=== PATIENT | male | born 1950 | race Caucasian/White ===

== ENCOUNTER 2022-07-25 13:40 | Inpatient (IN) | payer BC ==
[~2022-07-25] VITALS: Ht 177.8 cm; Wt 103.0 kg
[2022-07-25 14:30] LABS: BASOPHILS % (AUTO) 0.6 % (0-1); EOSINOPHILS # (AUTO) 0.1 X10'3 (0-0.9); EOSINOPHILS % (AUTO) 1.8 % (0-6); HEMATOCRIT 47.1 % (42.0-52.0); HEMOGLOBIN 16.5 g/dl (14.0-17.9); LYMPHOCYTES # (AUTO) 1.1 X10'3 (1.1-4.8); LYMPHOCYTES % (AUTO) 15.6 % (21-51); MEAN CORPUSCULAR HEMOGLOBIN 32.1 PG (27.0-31.0); MEAN CORPUSCULAR HGB CONC 35.1 g/dL (33.0-36.5); MEAN CORPUSCULAR VOLUME 91.5 FL (78-98); MEAN PLATELET VOLUME 7.1 FL (7.4-10.4); MONOCYTES # (AUTO) 0.5 X10'3 (0-0.9); MONOCYTES % (AUTO) 7.5 % (2-12); NEUTROPHILS # (AUTO) 5.1 X10'3 (1.8-7.7); NEUTROPHILS % (AUTO) 74.5 % (42-75); PLATELET COUNT 245 X10'3 (140-440); RED BLOOD COUNT 5.14 X10'6 (4.70-6.10); RED CELL DISTRIBUTION WIDTH 13.3 % (11.5-14.5); WHITE BLOOD COUNT 6.9 X10'3 (4.5-11.0)
[2022-07-25 14:45] LABS: ALANINE AMINOTRANSFERASE 28 U/L (12-78); ALBUMIN 4.4 G/DL (3.4-5.0); ALBUMIN/GLOBULIN RATIO 1.2 (1.1-1.5); ALKALINE PHOSPHATASE 90 IU/L (46-116); ANION GAP 10 (8-16); ASPARTATE AMINO TRANSFERASE 21 U/L (10-37); BILIRUBIN,TOTAL 0.6 MG/DL (0.1-1.0); BLOOD UREA NITROGEN 27 MG/DL (7-18); BUN/CREATININE RATIO 23.5 (5.4-32.0); CALCIUM 9.5 MG/DL (8.5-10.1); CHLORIDE 104 MMOL/L (99-107); CREATININE 1.15 MG/DL (0.60-1.10); GLUCOSE 126 MG/DL (70-104); POTASSIUM 4.6 MMOL/L (3.5-5.1); SODIUM 140 MMOL/L (135-145); TOTAL CARBON DIOXIDE 26.3 MMOL/L (24-32); eGFR 63 ML/MIN
[2022-07-25] MEDS ORDERED: aspirin 81mg tab.chew PO ONE (15:35)
[2022-07-25] MEDS ORDERED: metoprolol tartrate 25mg tablet PO ONE (15:35)
[2022-07-25] MEDS: nitroGLYCERIN 0.4mg SUBLingual tab SL PRN ×2 (15:45→15:46)
[2022-07-25] MEDS ORDERED: ZOLP12.543 PO (16:03)
[2022-07-25] MEDS ORDERED: ondansetron/PF 4mg/2ml inj IV PRN (16:20)
[2022-07-25] MEDS ORDERED: mag hydrox/Alum hydrox/simeth 30ml oral suspension PO PRN (16:20)
[2022-07-25] MEDS ORDERED: acetaminophen 325mg tablet PO PRN ×2 (16:20)
[2022-07-25] MEDS ORDERED: nitroGLYCERIN 0.4mg SUBLingual tab SL PRN (16:20)
[2022-07-25] MEDS ORDERED: magnesium hydroxide 30ml (MOM) UD suspension PO PRN (16:20)
[2022-07-25] MEDS ORDERED: morphine 2 MG/ML inj. syringe IV PRN ×2 (16:20)
[2022-07-25] MEDS ORDERED: MELO-100 PO (16:25)
[2022-07-25] MEDS ORDERED: ATOR40TA PO (16:25)
[2022-07-25] MEDS ORDERED: CITA20TA28 PO (16:25)
[2022-07-25] MEDS ORDERED: LORA-269 PO (16:25)
[2022-07-25] MEDS ORDERED: SYN0.088T PO (16:25)
[2022-07-25] MEDS ORDERED: HYDR-3972 PO (16:25)
[2022-07-25] MEDS ORDERED: ASPI-920 PO (16:25)
[2022-07-25 16:39] LABS: D-DIMER 0.54 MG/L FEU (0-0.50)
[2022-07-25 16:44] LABS: HEMOGLOBIN A1C 5.8 % (4.5-6.2)
--- NOTE | 2022-07-25 17:30 | NUR ---
Patient states that he wants to take his own medications. I printed out the policy and procedure for the patient on patients taking own medication and gave it to patient to review. Patient was appreciated, but stated that he would only take certain medications off of his home medication list from our pharmacy.
[2022-07-25] MEDS: docusate sod 100mg capsule PO SCH (20:00)
[2022-07-26 07:11] LABS: BASOPHILS % (AUTO) 0.4 % (0-1); EOSINOPHILS # (AUTO) 0.3 X10'3 (0-0.9); EOSINOPHILS % (AUTO) 3.8 % (0-6); HEMATOCRIT 48.8 % (42.0-52.0); HEMOGLOBIN 16.4 g/dl (14.0-17.9); LYMPHOCYTES # (AUTO) 1.8 X10'3 (1.1-4.8); LYMPHOCYTES % (AUTO) 26.1 % (21-51); MEAN CORPUSCULAR HEMOGLOBIN 31.5 PG (27.0-31.0); MEAN CORPUSCULAR HGB CONC 33.7 g/dL (33.0-36.5); MEAN CORPUSCULAR VOLUME 93.7 FL (78-98); MEAN PLATELET VOLUME 7.5 FL (7.4-10.4); MONOCYTES # (AUTO) 0.7 X10'3 (0-0.9); MONOCYTES % (AUTO) 10.1 % (2-12); NEUTROPHILS % (AUTO) 59.6 % (42-75); PLATELET COUNT 213 X10'3 (140-440); RED BLOOD COUNT 5.21 X10'6 (4.70-6.10); RED CELL DISTRIBUTION WIDTH 13.6 % (11.5-14.5); WHITE BLOOD COUNT 6.8 X10'3 (4.5-11.0)
[2022-07-26 07:26] LABS: ANION GAP 8 (8-16); BLOOD UREA NITROGEN 23 MG/DL (7-18); BUN/CREATININE RATIO 23.2 (5.4-32.0); CALCIUM 9.4 MG/DL (8.5-10.1); CHLORIDE 105 MMOL/L (99-107); CHOL/HDL RATIO 3.1 (0.00-4.99); CHOLESTEROL 141 MG/DL (0-200); CREATININE 0.99 MG/DL (0.60-1.10); GLUCOSE 107 MG/DL (70-104); HDL CHOLESTEROL 46 MG/DL (35-60); LDL CHOLESTEROL 83 MG/DL (50-100); SODIUM 142 MMOL/L (135-145); TOTAL CARBON DIOXIDE 28.7 MMOL/L (24-32); TRIGLYCERIDES 90 MG/DL (20-135); eGFR 75 ML/MIN
[2022-07-26 07:32] LABS: POTASSIUM 4.5 MMOL/L (3.5-5.1)
[2022-07-26] MEDS: docusate sod 100mg capsule PO SCH ×2 (08:00→19:26)
[2022-07-26] MEDS ORDERED: metoprolol tartrate 1mg/ml inj IV PRN (08:00)
[2022-07-26] MEDS ORDERED: nitroGLYCERIN 0.4mg SUBLingual tab SL PRN ×2 (08:00→21:00)
[2022-07-26] MEDS ORDERED: regadenoson 0.4mg/5ml syringe IV PRN (08:00)
[2022-07-26] MEDS ORDERED: aspirin 81mg, enteric-coated 1 TAB TABLET.DR PO SCH (08:00)
[2022-07-26] MEDS ORDERED: aminophylline 500mg/20ml vial IV PRN (08:00)
--- NOTE | 2022-07-26 08:22 | NUR ---
PT REFUSED TO KEEP VITAL SIGN EQUIPMENT ON, KEEPS TAKING THE EQUIPMENT OFF. WILL ATTEMPT AGAIN LATER.
[2022-07-26] MEDS ORDERED: heparin 25,000 UNIT/250ml bag 250 ML IV PRN (10:20)
[2022-07-26] MEDS ORDERED: heparin 10,000 units/1 ML INJ IV PRN (10:20)
[2022-07-26] MEDS ORDERED: heparin 10,000 units/1 ML INJ IV ONE ×2 (10:20→10:25)
--- NOTE | 2022-07-26 10:20 | NUR ---
PT TROPONINS WERE DRAWN, AND THEY CAME BACK CRITICALS. DR APARICIO WAS NOTIFIED OF THE LAB FINDINGS, AND DR APARICIO ORDERED THAT THE STRESS TEST BE CANCELLED. NUCLEAR MEDICINE WAS NOTIFIED OF THE ORDERS AND THE TEST WAS CANCELLED. PT WAS STARTED ON A HEPARIN DRIP ORDERED BY DR APARICIO.
[2022-07-26 10:47] LABS: BASOPHILS % (AUTO) 0.3 % (0-1); EOSINOPHILS # (AUTO) 0.1 X10'3 (0-0.9); EOSINOPHILS % (AUTO) 1.8 % (0-6); HEMATOCRIT 49.7 % (42.0-52.0); HEMOGLOBIN 16.9 g/dl (14.0-17.9); LYMPHOCYTES # (AUTO) 1.2 X10'3 (1.1-4.8); LYMPHOCYTES % (AUTO) 14.9 % (21-51); MEAN CORPUSCULAR HEMOGLOBIN 31.9 PG (27.0-31.0); MEAN CORPUSCULAR VOLUME 93.9 FL (78-98); MEAN PLATELET VOLUME 7.4 FL (7.4-10.4); MONOCYTES # (AUTO) 0.6 X10'3 (0-0.9); MONOCYTES % (AUTO) 7.1 % (2-12); NEUTROPHILS # (AUTO) 6.1 X10'3 (1.8-7.7); NEUTROPHILS % (AUTO) 75.9 % (42-75); PLATELET COUNT 250 X10'3 (140-440); RED CELL DISTRIBUTION WIDTH 13.6 % (11.5-14.5)
[2022-07-26 10:58] LABS: APTT 28 SECONDS (22-32)
--- NOTE | 2022-07-26 13:26 | NUR ---
EARLY LUNCH WAS GIVEN TO THE PT DUE TO HIS UP COMING PROCEDURE, AND HE WAS INSTRUCTED "NOTHING TO EAT" .
--- NOTE | 2022-07-26 14:00 | NUR ---
PT IS ASKING STAFF AND VISITORS TO BRING/BUY HIM FOOD. PT IS RE-EDUCATED THAT HE IS NPO UNTIL AFTER HIS PROCEDURE.
--- NOTE | 2022-07-26 14:07 | NUR ---
VISITORS AT BEDSIDE.
[2022-07-26] MEDS ORDERED: LEVO50TA8 PO (16:01)
[2022-07-26] MEDS ORDERED: nitroGLYCERIN-Tridil 50MG/D5W 250 ML IV ONE (16:35)
[2022-07-26] MEDS ORDERED: fentaNYL/PF 50MCG/1 ML 2ML syringe ONE (16:36)
[2022-07-26] MEDS ORDERED: midazolam 1 mg/ML 2ml injection ONE (16:36)
[2022-07-26] MEDS ORDERED: heparin 1,000unit/ml 10ml vial 10 ML ONE (16:36)
[2022-07-26] MEDS ORDERED: LIDOcaine 1% 30ml preserv. free vial ONE (16:36)
[2022-07-26] MEDS ORDERED: verapamil 2.5 mg/ml inj IV ONE (16:36)
[2022-07-26] MEDS ORDERED: iohexol 350MG/ML 100ml bottle IV ONE ×3 (16:36→18:01)
[2022-07-26] MEDS ORDERED: ticagrelor 90mg tablet ONE (17:52)
[2022-07-26] MEDS ORDERED: HYDROcodone/acetaminophen 10/325mg tab PO PRN (17:55)
[2022-07-26] MEDS ORDERED: tirofiban 5mg in NS 100mL 100 ML IV ONE ×2 (18:11→19:02)
[2022-07-26 19:00] VITALS: BP 135/87
[2022-07-26] MEDS: LORazepam 1 MG tablet PO SCH (19:26)
--- NOTE | 2022-07-26 19:28 | NUR ---
3 ml of air removed from right radial heart cath site
--- NOTE | 2022-07-26 19:45 | NUR ---
released 3 ml more air from right radial heart cath site. Puncture site is clear
[2022-07-26] MEDS ORDERED: ondansetron/PF 4mg/2ml inj IV PRN (20:55)
[2022-07-26] MEDS ORDERED: zolpidem 5mg tablet PO SCH (21:00)
[2022-07-26] MEDS ORDERED: atorvastatin 20mg tablet PO SCH (21:00)
[2022-07-26] MEDS ORDERED: OXAZEpam 15mg capsule PO PRN (21:00)
[2022-07-26] MEDS ORDERED: tirofiban 12.5mg in NS 250mL IV SCH (21:15)
[2022-07-26 22:00] VITALS: BP 109/52
[2022-07-26] MEDS: normal saline 1000ml 1,000 ML IV SCH (22:05)
[2022-07-27 02:00] VITALS: BP 130/80
[2022-07-27] MEDS: normal saline 1000ml 1,000 ML IV SCH (04:25)
--- NOTE | 2022-07-27 06:40 | NUR ---
Problems reprioritized. Patient report given, questions answered & plan of care reviewed with BRANDYN. Addendum: 07/27/22 at 0640 by Vicente Hernandez RN Amended: Links added.
[2022-07-27 07:00] VITALS: BP 125/71
[2022-07-27] MEDS ORDERED: levoTHYROXINE 25mcg tablet PO SCH (07:00)
[2022-07-27 07:05] LABS: BASOPHILS % (AUTO) 0.5 % (0-1); EOSINOPHILS # (AUTO) 0.3 X10'3 (0-0.9); EOSINOPHILS % (AUTO) 3.4 % (0-6); HEMATOCRIT 42.9 % (42.0-52.0); HEMOGLOBIN 14.7 g/dl (14.0-17.9); LYMPHOCYTES # (AUTO) 1.6 X10'3 (1.1-4.8); LYMPHOCYTES % (AUTO) 21.6 % (21-51); MEAN CORPUSCULAR HEMOGLOBIN 31.9 PG (27.0-31.0); MEAN CORPUSCULAR HGB CONC 34.2 g/dL (33.0-36.5); MEAN CORPUSCULAR VOLUME 93.2 FL (78-98); MEAN PLATELET VOLUME 7.3 FL (7.4-10.4); MONOCYTES % (AUTO) 13.7 % (2-12); NEUTROPHILS # (AUTO) 4.6 X10'3 (1.8-7.7); NEUTROPHILS % (AUTO) 60.8 % (42-75); PLATELET COUNT 233 X10'3 (140-440); RED BLOOD COUNT 4.61 X10'6 (4.70-6.10); RED CELL DISTRIBUTION WIDTH 13.4 % (11.5-14.5); WHITE BLOOD COUNT 7.6 X10'3 (4.5-11.0)
[2022-07-27 07:16] LABS: ALBUMIN 3.5 G/DL (3.4-5.0); ANION GAP 6 (8-16); BLOOD UREA NITROGEN 25 MG/DL (7-18); BUN/CREATININE RATIO 19.2 (5.4-32.0); CALCIUM 8.7 MG/DL (8.5-10.1); CHLORIDE 104 MMOL/L (99-107); GLUCOSE 101 MG/DL (70-104); POTASSIUM 3.8 MMOL/L (3.5-5.1); SODIUM 139 MMOL/L (135-145); eGFR 55 ML/MIN
[2022-07-27] MEDS: docusate sod 100mg capsule PO SCH (07:44)
[2022-07-27] MEDS: LORazepam 1 MG tablet PO SCH (07:48)
[2022-07-27] MEDS ORDERED: MELOXICAM 7.5 MG TABLET PO SCH (08:00)
[2022-07-27] MEDS ORDERED: ticagrelor 90mg tablet PO SCH (08:00)
[2022-07-27] MEDS ORDERED: aspirin 81mg, enteric-coated 1 TAB TABLET.DR PO SCH (08:00)
[2022-07-27] MEDS ORDERED: citalopram 20mg tablet PO SCH (08:00)
[2022-07-27] MEDS ORDERED: METO-395 PO (08:09)
[2022-07-27] MEDS ORDERED: ATOR40TA PO (08:10)
--- NOTE | 2022-07-27 08:34 | NUR ---
Patient gathering belongings and demanding to leave AMA. he is aware of the fact that he has discharge orders however says he is not waiting.
--- NOTE | 2022-07-27 08:35 | NUR ---
AMA papers signed. SADDLE STITCH OPERATOR at bedside.
--- NOTE | 2022-07-27 08:52 | NUR ---
Patient refused to wait for medication to be in his possession. Addendum: 07/27/22 at 2452 by Tiffany Shah RN Amended: Links added.
[2022-07-27] MEDS ORDERED: TICA90TA PO (08:54)
--- NOTE | 2022-07-27 09:32 | NUR ---
Patient stable and appropriate for discharge home. IV removed, monitor technician removed. All belongings gathered from room. New RX e-scripted to preferred pharmacy. All discharge instructions and education given and reviewed with patient, all questions answered. Patient very irritated refusing to wait for brillinta to be in possession. Educated him on the importance and next due doses of his medication. He verbalized understanding.
== END 2022-07-27 09:30 | disposition home or self-care (01) | DRG 247 ==
LOC: ER 13:41 → ED HOLD 16:21 → OBSVTOIN 07-26 09:00 → PCU 3S 07-26 18:50
PROVIDERS: ADMIT Internal Medicine; ATTEND Internal Medicine
PROC: 4A023N7 Measurement of Cardiac Sampling and Pressure, Left Heart, Percutaneous Approach (ICD-10-PCS; principal; 2022-07-26)
PROC: 027135Z Dilation of Coronary Artery, Two Arteries with Two Drug-eluting Intraluminal Devices, Percutaneous Approach (ICD-10-PCS; 2022-07-26)
PROC: B2111ZZ Fluoroscopy of Multiple Coronary Arteries using Low Osmolar Contrast (ICD-10-PCS; 2022-07-26)
PROC: 4A033BC Measurement of Arterial Pressure, Coronary, Percutaneous Approach (ICD-10-PCS; 2022-07-26)
DX: I21.4 Non-ST elevation (NSTEMI) myocardial infarction (principal); I25.10 Atherosclerotic heart disease of native coronary artery without angina pectoris; E03.9 Hypothyroidism, unspecified; E78.00 Pure hypercholesterolemia, unspecified; F41.9 Anxiety disorder, unspecified; F32.A Depression, unspecified; M54.9 Dorsalgia, unspecified; R00.1 Bradycardia, unspecified; G89.29 Other chronic pain; G47.33 Obstructive sleep apnea (adult) (pediatric); I10 Essential (primary) hypertension; I25.2 Old myocardial infarction; Z79.02 Long term (current) use of antithrombotics/antiplatelets; Z79.82 Long term (current) use of aspirin; Z79.899 Other long term (current) drug therapy; Z95.5 Presence of coronary angioplasty implant and graft
CPT/HCPCS: 93306; 93458; 93571; 99285; C9600; 36415; 71045; 80048; 80053; 80061; 83036; 83880; 84484; 85025; 85379; 85610; 85730; 93005; 99152; 99153; A4620; A5120; C1725; C1751; C1769; C1874; C1894; G0378; J1644; J2250; J3010; J3246; J3490; J7030; Q9967

== ENCOUNTER 2023-01-25 10:26 | Day surgery (SDC) | payer BC ==
[2023-01-21 15:45] LABS: BASOPHILS % (AUTO) 0.4 % (0-1); EOSINOPHILS # (AUTO) 0.2 X10'3 (0-0.9); EOSINOPHILS % (AUTO) 3.1 % (0-6); LYMPHOCYTES # (AUTO) 1.2 X10'3 (1.1-4.8); LYMPHOCYTES % (AUTO) 17.2 % (21-51); MEAN CORPUSCULAR HGB CONC 33.9 g/dL (33.0-36.5); MEAN CORPUSCULAR VOLUME 94.5 FL (78-98); MONOCYTES # (AUTO) 0.8 X10'3 (0-0.9); MONOCYTES % (AUTO) 10.8 % (2-12); NEUTROPHILS % (AUTO) 68.5 % (42-75); PRE OP HEMATOCRIT 44.7 % (42.0-52.0); PRE OP HEMOGLOBIN 15.2 g/dL (14.0-17.9); PRE OP PLATELET COUNT 345 X10'3 (140-440); RED BLOOD COUNT 4.73 X10'6 (4.70-6.10); RED CELL DISTRIBUTION WIDTH 13.6 % (11.5-14.5)
[2023-01-21 16:12] LABS: ALBUMIN 4.2 G/DL (3.4-5.0); ALBUMIN/GLOBULIN RATIO 0.9 (1.1-1.5); ALKALINE PHOSPHATASE 95 IU/L (46-116); BLOOD UREA NITROGEN 33 MG/DL (7-18); BUN/CREATININE RATIO 32.7 (10.0-20.0); CALCIUM 9.7 MG/DL (8.5-10.1); CHLORIDE 102 MMOL/L (99-107); CREATININE 1.01 MG/DL (0.60-1.10); PRE OP ALT 9 U/L (30-65); PRE OP ANION GAP 7 (8-16); PRE OP AST 27 U/L (10-37); PRE OP BILIRUB, TOTAL 0.6 MG/DL (0.0-1.0); PRE OP GLUCOSE 94 MG/DL (70-104); PRE OP SODIUM 140 MMOL/L (135-145); TOTAL CARBON DIOXIDE 31.2 MMOL/L (24-32); TOTAL PROTEIN 8.7 G/DL (6.4-8.2); eGFR 73 ML/MIN
[~2023-01-25] VITALS: Ht 177.8 cm; Wt 93.7 kg
[2023-01-25] VITALS (8 sets, daily range): BP systolic 110–144; BP diastolic 57–71
[~2023-01-25 10:26] MED LIST: ASPI-920 PO; ATOR20TA66 PO; BACL10TA2 PO; DOCUMENT DATE & TIME OF BETA-BLOCKER PO ONE; HYDR-3972 PO; LEVO50TA8 PO; LORA-269 PO; MELO-102 PO; METO-395 PO; ZOLP10TA; cefazolin 2gm/D5W 100mL 100 ML IV ONE; famotidine 20mg tablet PO ONE; ringers solution, lacted 1,000 ML IV SCH
[2023-01-25] MEDS ORDERED: BUPIVAcaine/PF 2.5 mg/ml (0.25%) 30ml vial ONE (10:59)
[2023-01-25] MEDS ORDERED: BUPIVACAINE liposomal/PF 13.3 MG/ML vial IM ONE (10:59)
[2023-01-25] MEDS ORDERED: LIDOcaine 1% 30ml preserv. free vial ONE (10:59)
[2023-01-25] MEDS ORDERED: fentaNYL/PF 50MCG/1 ML 2ML syringe ONE (11:13)
[2023-01-25] MEDS ORDERED: morphine 2 MG/ML inj. syringe IV PRN (11:20)
[2023-01-25] MEDS ORDERED: HYDROmorphone/PF 0.2 MG/ML SYRINGE IV PRN ×2 (11:20)
[2023-01-25] MEDS ORDERED: ondansetron/PF 4mg/2ml inj IV PRN (11:20)
[2023-01-25] MEDS ORDERED: ringers solution, lacted 1,000 ML IV SCH (11:20)
[2023-01-25] MEDS ORDERED: ondansetron/PF 4mg/2ml inj ONE (13:09)
[2023-01-25] MEDS ORDERED: glycopyrrolate 0.2mg/ml inj ONE (13:09)
[2023-01-25] MEDS ORDERED: dexamethasone sod phosphate 4mg/ml inj. ONE (13:09)
[2023-01-25] MEDS ORDERED: acetaminophen 1,000mg/100ml IV 100 ML IV ONE (13:09)
[2023-01-25] MEDS ORDERED: rocuronium 10mg/ml inj IV ONE (13:09)
[2023-01-25] MEDS ORDERED: LIDOcaine 2% (20mg/ml) 5ml vial ONE (13:09)
[2023-01-25] MEDS ORDERED: neostigmine methylsulfate 1 MG/ML 10ml vial ONE (13:09)
[2023-01-25] MEDS ORDERED: propofol inj 20 ML IV ONE (13:09)
[2023-01-25] MEDS ORDERED: oxyCODONE/APAP 10/325mg tablet PO ONE (13:10)
--- NOTE | 2023-01-25 13:19 | NUR ---
Received from OR via [facility], accompanied by Anesthesiologist DR. ROBLES and report given by Anesthesiolgist. VSS. LEFT HAND 20G PIV WITH LR RUNNING AT 100ML/HR. DRESSINGS TO ANTERIOR ABDOMEN X3 CDI. DENIES PAIN. 10L MASK.
--- NOTE | 2023-01-25 17:27 | NUR ---
at 1427 patient discharge ready. He continued to have multiple complaints. refusing to leave until dr. summers discussed his eye itching with him, needing eye drops prescribed. worrying about not being able to urinate. dr. summers arrived after much education patient bladder scanned and volume 298. dr. summers ordered to put in a catheter. urinary catheter inserted. clear yellow urine draining. instructions provided on home removal or follow up with office on for assitance in removal. Education provided to patient about removal and cleaning care. Discharge instructions discussed. patient had a difficult time finding a ride. asked me to order him a greasy pizza. educated on healthy eating and advance diet as tolerated per discharge instructions. iv catheter removed. instructions understood and education printouts provided on urinary catheter care. wheeled down to [facility], ex-girlfriend, to transport home.
== END 2023-01-25 17:29 | disposition home or self-care (01) ==
LOC: PAS 10:26
PROVIDERS: ATTEND Surgery
DX: K43.0 Incisional hernia with obstruction, without gangrene (principal); Z79.899 Other long term (current) drug therapy; Z98.890 Other specified postprocedural states; Z95.5 Presence of coronary angioplasty implant and graft; I10 Essential (primary) hypertension; I25.10 Atherosclerotic heart disease of native coronary artery without angina pectoris; F41.9 Anxiety disorder, unspecified; G89.18 Other acute postprocedural pain
CPT/HCPCS: 36415; 49594; 64488; 80053; 82948; 85025; C1713; C1758; C1781; C9290; J0131; J0690; J1100; J2405; J2704; J2710; J3010; J3490; J7030; J7120; S2900; Z7506; Z7508; Z7512; A4215; A4618